=== PATIENT | female | born 1950 | race African-American/Black ===

== ENCOUNTER → 2019-12-29 | Outpatient (CLI) | payer MEDICARE ==
--- NOTE | 2019-12-29 11:48 | RAD ---
Examination: MRI of the right knee without contrast HISTORY: History of right knee pain, effusion COMPARISON: None available TECHNIQUE: Multiplanar, multisequence MR imaging of the right knee was performed without contrast FINDINGS: The anterior cruciate ligament, posterior cruciate ligament appears intact. The medial meniscus appears intact. There is blunting and defect identified in the body and junction of the body and posterior horn of the lateral meniscus likely tear. The extensor mechanism appears intact. Small knee joint effusion. The medial, lateral retinaculum appears intact. Small popliteal cyst identified with the low intensity focus identified in the popliteal cyst could be a loose body or prominent synovium. Small enthesophyte identified in the tibial tuberosity at the site of attachment of the infrapatellar tendon. Moderate joint space loss identified in the medial, lateral, patellofemoral compartments. There is focal cartilage loss identified in the lateral compartment. There is mild fraying of cartilage identified in the medial, patellofemoral compartments. IMPRESSION: 1. Tear of the lateral meniscus. 2. Cartilage loss identified in the lateral compartment. 3. Small knee joint effusion with a moderate-sized popliteal cyst with low intensity focus identified in the popliteal cyst could be a loose body or prominent synovium. 4. Moderate tricompartmental degenerative changes. Electronically signed by: Jacinto Melgar MD (12/29/2019 11:45 AM) [id number]
== END | disposition home or self-care (01) ==
LOC: MRI 10:15
PROVIDERS: ATTEND Specialist
DX: S83.281A Other tear of lateral meniscus, current injury, right knee, initial encounter (principal); M71.21 Synovial cyst of popliteal space [Baker], right knee; M25.461 Effusion, right knee; X58.XXXA Exposure to other specified factors, initial encounter; Y93.89 Activity, other specified; Y92.89 Other specified places as the place of occurrence of the external cause; Y99.8 Other external cause status
CPT/HCPCS: 73721